=== PATIENT | male | born 1995 | race Caucasian/White ===

== ENCOUNTER 2024-01-29 07:07 | Emergency (ER) | payer MEDICAID ==
[~2024-01-29] VITALS: Ht 180.3 cm; Wt 82.0 kg
[2024-01-29 07:16] VITALS: O2SAT 93
[2024-01-29 08:21] LABS: BASOPHILS % 0.2 % (0.0-2.0); EOSINOPHILS % 0.3 % (0.0-5.0); HEMATOCRIT. 48.3 % (42.0-52.0); HEMOGLOBIN. 16.2 g/dL (14.0-18.0); LYMPHOCYTES % 7.1 % (20.0-50.0); MEAN CORPUSCULAR HEMOGLOBIN 30.2 pg (28.0-32.0); MEAN CORPUSCULAR HGB CONC 33.5 g/dL (31.0-37.0); MEAN CORPUSCULAR VOLUME 90.4 fL (80.0-94.0); MEAN PLATELET VOLUME 8.9 fl (7.4-10.4); MONOCYTES % 5.2 % (2.0-8.0); NEUTROPHILS % 87.2 % (40.0-76.0); PLATELET 391 x1000/uL (130-400); RED BLOOD CELL COUNT 5.35 mill/uL (4.7-6.1); RED CELL DISTRIBUTION WIDTH 12.7 % (11.6-14.6); WHITE BLOOD COUNT 16.7 x1000/uL (4.5-11.0)
[2024-01-29 11:07] LABS: ACETAMINOPHEN < 2 ug/mL (10-30); ALBUMIN 4.9 g/dL (3.2-4.8); BILIRUBIN TOTAL 1.1 mg/dL (0.1-1.0); CALCIUM 8.2 mg/dL (8.7-10.4); CARBON DIOXIDE 13 mEq/L (21-32); CHLORIDE 100 mEq/L (98-107); CREATININE 1.7 mg/dL (0.6-1.3); GLUCOSE 126 mg/dL (70-105); POTASSIUM 4.9 mEq/L (3.5-5.1); PROTEIN TOTAL 7.2 g/dL (6.0-8.3); SODIUM 136 mEq/L (136-145); UREA NITROGEN BLOOD 16 mg/dL (9-23)
[2024-01-29 11:10] LABS: ETHANOL BLOOD < 10 mg/dL (<10)
[2024-01-29] MEDS ORDERED: NALO4SPR BOTHNSTRLS (11:29)
[2024-01-29 12:04] LABS: ALANINE AMINOTRANSFERASE > 3300 IU/L (10-49); ASPARTATE AMINOTRANSFERASE 4217 IU/L (<34)
[2024-01-29] MEDS: PANTOPRAZOLE SODIUM 40 MG/VIAL IV ONE (12:15)
[2024-01-29] MEDS: ONDANSETRON HCL 4MG/2ML INJ IV ONE (12:15)
[2024-01-29] MEDS: SODIUM CHLORIDE 0.9% 1,000 ML IV ONE ×2 (12:15→14:45)
[2024-01-29 13:22] LABS: LACTIC ACID 5.6 mmol/L (0.4-2.0)
[2024-01-29] MEDS: PIPERACILLIN/TAZO 3.375G/50ML 50 ML IV ONE (14:45)
[2024-01-29] MEDS: VANCOMYCIN 1G PREMIX 200 ML IV ONE (14:45)
[2024-01-29] MEDS: ACETYLCYSTEINE IV SCH (15:25)
[2024-01-29] MEDS: WATER IV SCH (15:25)
[2024-01-29] MEDS: DEXT 5% IV SCH (15:25)
[2024-01-29 15:51] LABS: HEPATITIS A AB IGM NEGATIVE (Negative); HEPATITIS B CORE AB IGM NEGATIVE (Negative); HEPATITIS B SURFACE ANTIGEN NEGATIVE (Negative); HEPATITIS C AB NON REACTIVE (Neg) (Negative)
[2024-01-29 17:16] LABS: CLARITY URINE CLOUDY (CLEAR); COLOR URINE YELLOW (YELLOW); GLUCOSE URINE NEGATIVE (NEGATIVE); KETONES URINE NEGATIVE (NEGATIVE); LEUKOCYTE ESTERASE URINE NEGATIVE (NEGATIVE); NITRITE URINE NEGATIVE (NEGATIVE); OCCULT BLOOD URINE 3+ (NEGATIVE); PH URINE 5.5 (4.5-8.0); PROTEIN URINE 2+ (NEGATIVE); SPECIFIC GRAVITY URINE 1.014 (1.005-1.030); UROBILINOGEN URINE 0.2 E.U./dL (0.2-1.0)
[2024-01-29 17:29] LABS: *AMPHETAMINES SCREEN URINE PRESUMPTIVE POSITIVE (NEGATIVE); *BARBITURATES SCREEN URINE NEGATIVE (NEGATIVE); *BENZODIAZEPINES SCREEN URINE NEGATIVE (NEGATIVE); *COCAINE SCREEN URINE NEGATIVE (NEGATIVE); CANNABINOID URINE SCREEN PRESUMPTIVE POSITIVE (NEGATIVE); ECSTASY MDMA SCREEN URINE NEGATIVE (NEGATIVE); METHADONE URINE SCREEN Neg (NEGATIVE); OPIATES URINE SCREEN NEGATIVE (NEGATIVE); PHENCYCLIDINE URINE SCREEN NEGATIVE (NEGATIVE)
[2024-01-29 17:35] LABS: BACTERIA URINE 4+
[2024-01-29 17:36] LABS: FINE GRANULAR CASTS URINE 0-5 /lpf; SQUAMOUS EPITHELIAL CELL URINE FEW /lpf (RARE/1+); WBC URINE 0-2 /hpf (0-2)
[2024-01-29] MEDS: ACETYLCYSTEINE INJ 4,100 MG in DEXT 5% WATER 500 ML IV SCH (17:47)
[2024-01-29 17:57] VITALS: TEMP 98.6
[2024-01-29 18:00] VITALS: BP 123/61; PULSE 90; RESP 23
[2024-01-29] MEDS ORDERED: ACETYLCYSTEINE INJ 8,200 MG in DEXTROSE 5% WATER 1,000 ML IV SCH (18:30)
== END 2024-01-29 20:39 | disposition left against medical advice (07) ==
LOC: ER 07:36 → EDBD 07:36 → EDBEDREQ 13:18 → EDBEDREQTM 13:18 → ER 20:39 → CANBEDREQ 01-31 10:34
DX: K75.9 Inflammatory liver disease, unspecified (principal); K72.90 Hepatic failure, unspecified without coma; Z87.891 Personal history of nicotine dependence
CPT/HCPCS: 80053; 80305; 81003; 80307; 80329; 80320; 82962; 83605; 83690; 85025; 87340; 87040; 36415; 86705; 86709; 84145; 71045; 76705; 93005; 99291; J0132; J2405; C9113; J2543; J3370; J7060 ×2; J7030; Z7610 ×2; G0480